=== PATIENT | male | born 1935 | race Caucasian/White ===

== ENCOUNTER → 2017-07-06 | Outpatient (CLI) | payer MEDICARE, BC, OTHER ==
[2017-07-06 14:08] LABS: BASO % 0.4 % (0.0-1.0); EOS # 0.2 10^3/uL (0.0-0.50); EOS % 1.6 % (0.0-3.0); IMMATURE GRANULOCYTE % 0.8 % (0-3.0); LYMPH # 1.2 10^3/uL (1.5-4.5); LYMPH % 12.1 % (24.0-44.0); MEAN CORPUSCULAR HEMOGLOBIN 31.8 pg (27.0-33.0); MEAN CORPUSCULAR HGB CONC 34.7 g/dl (32.0-36.5); MEAN CORPUSCULAR VOLUME 91.6 fl (80.0-96.0); MONO # 0.8 10^3/uL (0.0-0.8); MONO % 7.7 % (0.0-5.0); NEUTROPHILS # 7.7 10^3/uL (1.8-7.7); NEUTROPHILS % 77.4 % (36.0-66.0); PLATELET COUNT, AUTOMATED 230 10^3/uL (150-450); RED BLOOD COUNT 5.35 10^6/uL (4.30-6.10); RED CELL DISTRIBUTION WIDTH 12.4 % (11.5-14.5)
[2017-07-06 14:28] LABS: ALBUMIN 3.6 GM/DL (3.2-5.2); ALBUMIN/GLOBULIN RATIO 1.06 (1.00-1.93); ALKALINE PHOSPHATASE 111 U/L (45-117); ALT/SGPT 24 U/L (12-78); ANION GAP 11 MEQ/L (8-16); AST/SGOT 14 U/L (7-37); BILIRUBIN,DIRECT 0.3 MG/DL (0.0-0.2); BLOOD UREA NITROGEN 14 MG/DL (7-18); CALCIUM LEVEL 9.9 MG/DL (8.8-10.2); CARBON DIOXIDE LEVEL 25 MEQ/L (21-32); CHLORIDE LEVEL 106 MEQ/L (98-107); CREATININE FOR GFR 1.12 MG/DL (0.70-1.30); GLOMERULAR FILTRATION RATE > 60.0 (>35); GLUCOSE, FASTING 135 MG/DL (70-100); PHOSPHORUS LEVEL 2.4 MG/DL (2.5-4.9); POTASSIUM SERUM 3.8 MEQ/L (3.5-5.1); SODIUM LEVEL 142 MEQ/L (136-145)
[2017-07-09 00:07] LABS: QUANTIFERON GOLD TB Negative (Negative); TB Test (QFT) Antigen 0.07 IU/mL (.); TB Test (QFT) Antigen Minus Ni 0.05 IU/mL (.); TB Test (QFT) Mitogen >10.00 IU/mL (.); TB Test (QFT) Nil 0.02 IU/mL (.)
== END ==
LOC: M WUC 12:12
DX: L40.0 Psoriasis vulgaris (principal); Z79.899 Other long term (current) drug therapy; Z51.81 Encounter for therapeutic drug level monitoring
CPT/HCPCS: 80076

== ENCOUNTER → 2017-11-22 | Outpatient (CLI) | payer MEDICARE, BC, OTHER ==
[2017-11-22 16:34] LABS: ALBUMIN 3.5 GM/DL (3.2-5.2); ANION GAP 8 MEQ/L (8-16); BLOOD UREA NITROGEN 13 MG/DL (7-18); CALCIUM LEVEL 10.1 MG/DL (8.8-10.2); CARBON DIOXIDE LEVEL 26 MEQ/L (21-32); CHLORIDE LEVEL 109 MEQ/L (98-107); CREATININE FOR GFR 1.27 MG/DL (0.70-1.30); GLOMERULAR FILTRATION RATE 57.5 (>35); GLUCOSE, FASTING 104 MG/DL (70-100); PHOSPHORUS LEVEL 2.7 MG/DL (2.5-4.9); SODIUM LEVEL 143 MEQ/L (136-145)
== END ==
LOC: M WUC 14:29
DX: Z51.81 Encounter for therapeutic drug level monitoring (principal); Z79.899 Other long term (current) drug therapy; L40.0 Psoriasis vulgaris
CPT/HCPCS: 80069

== ENCOUNTER → 2018-01-10 | Outpatient (CLI) | payer MEDICARE, BC, OTHER ==
[2018-01-10 17:16] LABS: PROSTATIC SPECIFIC AG MONITOR 0.34 NG/ML (< 4.0)
== END ==
LOC: M WUC 13:11
DX: N40.1 Benign prostatic hyperplasia with lower urinary tract symptoms (principal)
CPT/HCPCS: 84153

== ENCOUNTER → 2018-09-01 | Outpatient (REF) | payer MEDICARE, OTHER ==
[~2018-09-01] MED LIST: AMLO5TAB6 PO; ASPI81TA21 PO; CALC3OIN TOP; DONE10TA90 PO; FINA5TAB2 PO; LEVO50TA5 PO; TERA5CAP3 PO; TOLT2CAP4 PO
[2018-09-01 14:50] LABS: URINE TOTAL PROTEIN 16.9 MG/DL (0-12)
[2018-09-01 17:32] LABS: TOTAL PROTEIN 7.4 GM/DL (6.4-8.2)
[2018-09-05 13:01] LABS: ALBUMIN 4.04 GM/DL (3.29-5.55); ALBUMIN % 54.6 % (55.8-66.1); ALPHA-1-GLOBULIN % 4.4 % (2.9-4.9); ALPHA-1-GLOBULINS 0.33 GM/DL (0.17-0.41); ALPHA-2-GLOBULINS 0.73 GM/DL (0.42-0.99); ALPHA-2-GLOBULINS % 9.8 % (7.1-11.8); BETA-1-GLOBULINS 0.43 GM/DL (0.28-0.60); BETA-1-GLOBULINS % 5.8 % (4.7-7.2); BETA-2-GLOBULINS 0.36 GM/DL (0.19-0.55); BETA-2-GLOBULINS % 4.8 % (3.2-6.5); GAMMA GLOBULIN % 20.6 % (11.1-18.8); GAMMA GLOBULINS 1.52 GM/DL (0.65-1.58)
[2018-09-05 14:10] LABS: VITAMIN D 1,25 DIHYDROXY 29.2 pg/mL (19.9-79.3)
[2018-09-07 13:25] LABS: UPEP INTERPRETATION NO M-SPIKE NOTED; URINE VOLUME RANDOM ML
== END ==
LOC: M LAB REF 13:20
PROVIDERS: ATTEND Internal Medicine Nephrology
DX: E83.52 Hypercalcemia (principal)

== ENCOUNTER → 2018-09-04 | Outpatient (REF) | payer MEDICARE, OTHER | LOC: M LAB REF 12:53 | PROVIDERS: ATTEND Internal Medicine Nephrology | DX: E83.52 Hypercalcemia (principal) ==

== ENCOUNTER → 2018-09-12 | Outpatient (CLI) | payer MEDICARE, BC, OTHER ==
[~2018-09-12] MED LIST changes: +ISOVUE-370 76% 100ML VIAL (Q9967) As Ordered ONE
--- NOTE | 2018-09-12 13:28 | REP ---
Clinical: Acute renal failure. Technique: Real time hi scale ultrasound examination using curved array transducer. Findings: The left kidney is normal in reniform shape and echogenicity without hydronephrosis and measures 10.4 x 5.6 x 4.8 cm. There appears to be a solid mass in the upper pole measuring 2.8 x 2.6 x 2.4 cm along with lower pole cyst measuring 1.2 cm. The right kidney is normal in reniform shape and echogenicity without hydronephrosis, nephrolithiasis, cystic or renal mass lesion and measures 11.1 x 4.8 x 4.7 cm. The bladder is normal in appearance. Prevoid bladder measures 5.1 x 6.7 x 7.1 cm (127 ml). Postvoid bladder measures 2.2 x 2.7 x 4.1 cm (13 ml). Postvoid residual equals 10%. Impression: 1. Left renal mass requires further investigation. Findings suggest neoplasm unless proven otherwise. Electronically Signed by Carlitos Silva MD 09/12/2018 01:20 P
== END ==
LOC: M RAD 08:38
PROVIDERS: ATTEND Internal Medicine Nephrology
DX: N17.9 Acute kidney failure, unspecified (principal); I12.9 Hypertensive chronic kidney disease with stage 1 through stage 4 chronic kidney disease, or unspecified chronic kidney disease; E83.52 Hypercalcemia; N18.3 Chronic kidney disease, stage 3 (moderate)

== ENCOUNTER 2018-09-13 15:15 | Inpatient (IN) | payer MEDICARE, BC, OTHER ==
[~2018-09-13] VITALS: Ht 165.1 cm; Wt 68.5 kg
[2018-09-13] MEDS ORDERED: AMLO5TAB6 PO (15:30)
[2018-09-13] MEDS ORDERED: FINA5TAB2 PO (15:30)
[2018-09-13] MEDS ORDERED: LEVO50TA5 PO (15:30)
[2018-09-13] MEDS ORDERED: ASPI81TA21 PO (15:30)
[2018-09-13] MEDS ORDERED: TERA5CAP3 PO (15:30)
[2018-09-13] MEDS ORDERED: TOLT2CAP4 PO (15:30)
[2018-09-13] MEDS ORDERED: DONE10TA90 PO (15:30)
[2018-09-13] MEDS ORDERED: MAALOX 30 ML SUSP *UDC PO PRN (16:45)
[2018-09-13] MEDS ORDERED: ACETAMINOPHEN TAB 650MG DOSE (2X325MG) PO PRN (16:45)
[2018-09-13] MEDS ORDERED: MOM 30ML SUSPENSION UDC PO PRN (16:45)
[2018-09-13 16:57] LABS: HEMATOCRIT 43.1 % (42.0-52.0); HEMOGLOBIN 14.9 g/dl (13.5-17.5); MEAN CORPUSCULAR HEMOGLOBIN 30.8 pg (27.0-33.0); MEAN CORPUSCULAR HGB CONC 34.6 g/dl (32.0-36.5); PLATELET COUNT, AUTOMATED 194 10^3/uL (150-450); RED BLOOD COUNT 4.84 10^6/uL (4.30-6.10); WHITE BLOOD COUNT 8.5 10^3/uL (4.0-10.0)
[2018-09-13] MEDS ORDERED: CALC3OIN TOP (17:00)
--- NOTE | 2018-09-13 17:27 | HPEPDOC ---
General Date of Admission 09/13/18 Date of Service: September 13, 2018 Attending Physician: IDANIA SHORE MD Chief Complaint The patient is a 83-year-old male admitted with a reason for visit of Abnormal L abs. Source: Patient, Family Exam Limitations: No limitations Timing/Duration: Unsure Severity: Other Associated Symptoms: Unobtainable History of Present Illness This is 82 years old white male with past medical history of hypothyroidism, BPH, overactive bladder, was sent by his regional project manager with the diagnosis of acute renal failure, hypercalcemia and a left renal mass. Patient is a poor historian. Family also is unable to give me a good history. Her father has reasoning for admission, but I spoke with Dr Lopez and he explained to patient being admitted with above diagnoses. Patient offers no complaints of chest pain, shortness of breath, tremors, seizures, etc. Home Medications Scheduled Amlodipine Besylate (Amlodipine Besylate) 5 Mg Tablet, 5 MG PO DAILY, (Reported) Aspirin (Aspir-Low) 81 Mg Tablet.dr, 81 MG PO QHS, (Reported) Calcitriol (Calcitriol) 100 Gm Oint...g., 1 APLCT TOP BID, (Reported) APPLIES TO AFFECTED AREAS FOR PSORIASIS Donepezil HCl (Donepezil HCl) 10 Mg Tablet, 10 MG PO QPM, (Reported) AFTER DINNER Finasteride (Finasteride) 5 Mg Tablet, 5 MG PO QHS, (Reported) Levothyroxine Sodium (Levothyroxine Sodium) 50 Mcg Tablet, 50 MCG PO DAILY, (Reported) Terazosin HCl (Terazosin HCl) 5 Mg Capsule, 5 MG PO QHS, (Reported) Tolterodine Tartrate (Tolterodine Tartrate ER) 2 Mg Cap.er.24h, 2 MG PO DAILY, (Reported) Allergies Coded Allergies: No Known Allergies (Unverified , 09/13/18) Past Medical History Medical History hypothyroids, BPH Surgical History back operation,s/p pilonidal cyst removal Family History Significant Family History: No pertinent family hx Social History * Smoker: former Smoker, quit greater than 1 year Alcohol: Denies Drugs: denies A-FIB/CHADSVASC A-FIB History Current/History of A-Fib/PAF?: No Review of Systems Constitutional: Denies: Chills, Fever, Malaise, Night Sweats, Weakness, Fatigue, Weight Loss, Lethargy, Other Eyes: Denies: Pain, Vision change, Conjunctivae inflammation, Eyelid inflammation, Redness, Other ENT: Denies: Head Aches, Ear Pain, Dysphagia, Sinus Congestion, Post Nasal Drip, Sore Throat, Epistaxis, Other Symptoms Skin: Denies: Rash, Lesions, Jaundice, Bruising, Itching, Dry, Breakdown, Nail Changes, Other Pulmonary: Denies: Dyspnea, Cough, Pleuritic Chest Pain, Other Symptoms Cardiovascular: Denies: Chest Pain, Palpitations, Orthopnea, Paroxysmal Noc. Dyspnea, Edema, Lt Headedness, Other Symptoms Gastrointestinal: Denies: Nausea, Vomiting, Abdominal Pain, Diarrhea, Constipation, Melena, Hematochezia, Other Symptoms Genitourinary: Denies: Dysuria, Frequency, Incontinence, Hematuria, Retention, Other Symptoms Hematologic: Denies: Bruising, Bleeding Excessively, Petecchia, Purpura, Enlarged Lymph Nodes, Other Hematologic Endocrine: Denies: Polydipsia, Polyphagia, Polyuria, Heat Intolerance, Cold Intolerance, Other Endocrine Sx Musculoskeletal: Denies: Neck Pain, Back Pain, Shoulder Pain, Arm Pain, Hand Pain, Leg Pain, Foot Pain, Joint Pain, Muscle Pain, Spasms, Other Symptoms Neurological: Denies: Weakness, Numbness, Incoordination, Change in speech, Confusion, Seizures, Other Symptoms Psych: Reports: Anxiety; Denies: Mood Normal, Depression, Memory Issues, Thoughts of Self Harm, Anger, Thoughts of Harming Other, Other Psych Physical Examination General Exam: Positive: Alert, Cooperative Eye Exam: Positive: PERRLA ENT Exam: Positive: Atraumatic, Mucous membr. moist/pink Neck Exam: Positive: Supple Chest Exam: Positive: Clear to auscultation, Normal air movement Heart Exam: Positive: Rate Normal, Normal S1, Normal S2 Abdomen Exam: Positive: Normal bowel sounds, Soft Extremity Exam: Positive: Normal pulses Skin Exam: Positive: Nl turgor and temperature Neuro Exam: Positive: Normal Gait, Cranial Nerves 3-12 NL Psych Exam: Positive: Mental status NL, Mood NL Vital Signs Vital Signs Date Time Temp Pulse Resp B/P (MAP) Pulse Ox O2 Delivery O2 Flow Rate FiO2 09/13/18 15:46 09/13/18 15:16 98.3 97 18 94 Room Air Laboratory Data Labs 24H Laboratory Tests 2 09/13/18 16:47: Nucleated Red Blood Cells % (auto) 0.0 09/13/18 16:53: POC Glucose (Misc Panel) 101, POC Sodium (Misc Panel) 140, POC Potassium (Misc Panel) 3.6, POC Chloride (Misc Panel) 107, POC Total CO2 (Misc Panel) 22.0L, POC Blood Urea Nitrogen (Misc Panel 19, POC Ionized Calcium (Misc Panel) 5.3, POC Creatinine (Misc Panel) 1.6H, POC Hematocrit (Misc Panel) 42.0 CBC/BMP Laboratory Tests 09/13/18 16:47 Red Blood Count 4.84, Mean Corpuscular Volume 89.0, Mean Corpuscular Hemoglobin 30.8, Mean Corpuscular Hemoglobin Concent 34.6, Red Cell Distribution Width 12.2 Problems (1) Renal mass, left Status: Acute Problem Specific Plan: Consult Specialist (2) Hypercalcemia Status: Acute Problem Specific Plan: Consult Specialist (3) Acute renal failure Status: Acute Problem Specific Plan: Consult Specialist Plan / VTE VTE Prophylaxis Ordered?: Yes Plan Plan Admit to med floor IVF MRI abdomen without contrast labs are pending-ordered Dr Cleveland for nephro consult continue home meds except ASA VTE prophylaxis with IDANIA Croft MD September 13, 2018 17:26
[2018-09-13 17:53] LABS: ALBUMIN 3.3 GM/DL (3.2-5.2); BILIRUBIN,TOTAL 0.7 MG/DL (0.2-1.0); CREATININE FOR GFR 1.65 MG/DL (0.70-1.30); GLOMERULAR FILTRATION RATE 42.4 (>35); POTASSIUM SERUM 3.8 MEQ/L (3.5-5.1); TOTAL PROTEIN 7.1 GM/DL (6.4-8.2)
[2018-09-13 20:20] VITALS: BP 137/84
--- NOTE | 2018-09-13 20:31 | REP ---
Clinical: Left renal mass. Technique: Noncontrast MRI of the abdomen including coronal T2 and axial STIR, T2, in phase / out of phase sequences. Findings: There is a solid mass in the upper pole of the left kidney causing contour defects and measuring approximately 2.3 cm with small amount of suspected central necrosis. The there is a 1.3 cm cyst at the lower pole of the left kidney. The right kidney demonstrates small subcentimeter lower pole cyst. Impression: 2.3 cm solid mass in the upper pole of the left kidney with suspected small amount of central necrosis. Evaluation is limited by the lack of contrast. Pre and postcontrast CT of the abdomen should be considered for further investigation. Electronically Signed by Carlitos Silva MD 09/13/2018 08:22 P
[2018-09-13] MEDS: NS 1,000 ML IV SCH (20:50)
[2018-09-13] MEDS ORDERED: FINASTERIDE 5 MG TAB PO SCH (21:00)
[2018-09-13] MEDS: DOCUSATE SODIUM 100 MG CAP PO SCH (22:29)
[2018-09-14 06:00] VITALS: BP 125/67
[2018-09-14] MEDS ORDERED: LEVOTHYROXINE 50MCG TABLET (0.05MG) PO SCH (06:00)
[2018-09-14] MEDS: NS 1,000 ML IV SCH (06:33)
[2018-09-14 06:35] LABS: HEMATOCRIT 38.6 % (42.0-52.0); HEMOGLOBIN 13.1 g/dl (13.5-17.5); MEAN CORPUSCULAR HEMOGLOBIN 29.8 pg (27.0-33.0); MEAN CORPUSCULAR HGB CONC 33.9 g/dl (32.0-36.5); MEAN CORPUSCULAR VOLUME 87.7 fl (80.0-96.0); PLATELET COUNT, AUTOMATED 173 10^3/uL (150-450); WHITE BLOOD COUNT 7.1 10^3/uL (4.0-10.0)
--- NOTE | 2018-09-14 06:36 | CR ---
DATE OF CONSULTATION: 09/13/2018 REQUESTING PHYSICIAN: Dr. Edenilson Duncan CONSULTING PHYSICIAN: Dr. Cleveland REASON FOR CONSULTATION: Management of acute renal failure and left-sided renal mass. CHIEF COMPLAINT: Patient was advised to come to the emergency room because of nausea, vomiting, worsening renal function, and evidence of a mass in the left kidney on renal ultrasound. HISTORY OF PRESENT ILLNESS: Mr. Nixon Sheikh is an 83-year-old male with past medical history of hypertension, BPH, hypothyroidism. He was seen by myself in the office about 2 weeks ago, and at that time he was referred to the nephrology service for management of worsening renal function, development of hypercalcemia. At that point, patient was found to be taking calcium tablets and multivitamins and patient was advised to stop taking the calcium tablets of multivitamins, and decision was also taken to do further imaging to rule out the possibility of a malignancy in this patient. Patient got the ultrasound of the kidneys done as outpatient yesterday, which showed a mass in the left kidney. I also got a call from patient this morning that after eating at a restaurant last night, patient had a lot of vomiting and production of a lot of mucus. Given patient's history of worsening renal function, development of hypercalcemia, and evidence of a mass in the left kidney, decision was made to send the patient to the emergency room for further evaluation and imaging studies. Patient is being admitted under the hospitalist service. Nephrology service was called for further help in the management of renal mass and acute kidney injury. I saw and evaluated the patient today, evening, in the emergency room. Patient denies any more nausea or vomiting. He denies any abdominal pain, and he is asymptomatic at this point. PAST MEDICAL HISTORY: 1. Hypertension. 2. Hypothyroidism. 3. BPH. 4. History of dementia. PAST SURGICAL HISTORY: 1. History of pilonidal sinus cyst removal. 2. History of back surgery in the past. ALLERGIES: No known drug allergies. FAMILY HISTORY: There is positive family history of carcinoma (CA) colon. SOCIAL HISTORY: Patient denies any illicit drug abuse or alcohol abuse. He does have history of smoking, but he quit about a year ago. REVIEW OF SYSTEMS: CONSTITUTIONAL: Patient denies any fevers or chills. EYES: He denies any blurry vision, double vision. EAR, NOSE, AND THROAT (ENT): He denies any dysphagia or odynophagia. CARDIOVASCULAR: Denies any chest pain, palpitations. RESPIRATORY: He denies any shortness of breath or cough. GASTROINTESTINAL (GI): He reports nausea and vomiting last night. GENITOURINARY: He reports history of BPH. MUSCULOSKELETAL: He denies any muscle aches and pains. SKIN: He denies any rashes or ulcers. HEMATOLOGIC/ONCOLOGIC: He reports recent diagnosis of a mass in the left kidney. CENTRAL NERVOUS SYSTEM (LEADERSHIP DEVELOPMENT MANAGER): He denies any strokes or seizures. ENDOCRINE: He reports history of hypothyroidism. All other review of systems is negative. PHYSICAL EXAMINATION: GENERAL: Patient is awake, alert, oriented times three, sitting up in the bed, in no apparent distress. VITAL SIGNS: Temperature is 98.3 degrees Fahrenheit, blood pressure 142/83, pulse is 97, respiratory rate of 18, saturating 94% on room air. HEAD AND NECK EXAM: Extraocular muscles intact. Pupils equally round and reactive to light. Mucous membranes are moist. Neck is supple. There is no jugular venous distention (JVD). CARDIOVASCULAR: S1, S2, regular rate. No edema of the bilateral lower extremities. RESPIRATORY: Chest is clear to auscultation bilaterally. Bilateral equal air entry. No rales or rhonchi. ABDOMEN: Soft. Positive bowel sounds. Nontender. No organomegaly. MUSCULOSKELETAL: No clubbing or cyanosis. Pulses are 2+. CENTRAL NERVOUS SYSTEM: No focal deficit. Power is 5/5 in all extremities. SKIN: No rashes or ulcers. LAB REVIEW: CBC showed a WBC of 8.5, hemoglobin 14.9, platelets are 194. BMP showed sodium 142, potassium 3.8, chloride 109, bicarbonate 23, BUN 19, creatinine is 1.6, calcium is 10, albumin is 3.3. IMAGING: An MRI was done without contrast today, which showed a solid mass in the upper pole of the left kidney causing contour defect, measuring approximately 2.3 cm with a small amount of suspected central necrosis. There is a 1.3 cm cyst in the lower pole of the left kidney. CURRENT INPATIENT MEDICATIONS: Patient's medications were all reviewed by me. He has been started on intravenous (IV) fluid hydration. He is taking: - Mylanta as needed - amlodipine 5 mg daily - Colace 100 mg by mouth twice a day - finasteride 5 mg by mouth nightly - levothyroxine 50 mcg by mouth daily - milk of magnesia as needed - Detrusitol 2 mg by mouth daily ASSESSMENT: 83-year-old male with BPH, hypertension, acute kidney injury, and left-sided renal mass. PLAN: 1. Acute kidney injury, most likely secondary to dehydration and left-sided renal mass. He has been started on gentle IV fluid hydration. Further evaluation of the renal mass as mentioned below. 2. Left-sided renal mass. Patient had the renal ultrasound done yesterday, which showed a solid mass in the left kidney. Further imaging was advised. MRI without contrast was done, which showed a solid renal mass with necrosis. Patient will need further evaluation by urology. If urology recommended, then a CT scan with IV contrast will be done with pre and post hydration. 3. Hypercalcemia. Patient had a calcium of more than 12 on labs done outpatient; however, labs done today showed a calcium of 10, which is optimal. His vitamin D and multivitamin including calcium were already stopped. No need of calcitonin administration at this point. 4. Hypothyroidism. Continue home dose of levothyroxine 50 mcg by mouth daily. 5. Hypertension. Blood pressure is acceptable. Continue current dose of amlodipine 5 mg by mouth daily. 6. BPH. Continue home dose of Proscar 5 mg by mouth nightly and tolterodine 2 mg by mouth daily. Thank you for involving me in the care of this patient. I shall be happy to follow the patient along with you tomorrow morning. Plan of care was discussed with the admitting physician, Dr. Duncan.
[2018-09-14 07:01] LABS: ALBUMIN 2.8 GM/DL (3.2-5.2); BILIRUBIN,TOTAL 0.7 MG/DL (0.2-1.0); CALCIUM LEVEL 9.2 MG/DL (8.8-10.2); CREATININE FOR GFR 1.33 MG/DL (0.70-1.30); GLOMERULAR FILTRATION RATE 54.4 (>35); MAGNESIUM LEVEL 1.6 MG/DL (1.8-2.4); POTASSIUM SERUM 3.4 MEQ/L (3.5-5.1); TOTAL PROTEIN 5.8 GM/DL (6.4-8.2)
[2018-09-14] MEDS ORDERED: POTASSIUM CHLORIDE 10 MEQ SR TABLET PO SCH (09:00)
[2018-09-14] MEDS ORDERED: TOLTERODINE TARTRATE 2 MG LA CAP (DETROL LA) PO SCH (09:00)
[2018-09-14] MEDS ORDERED: amLODIPine 5 MG TAB PO SCH (09:00)
[2018-09-14 09:27] VITALS: BP 144/77
[2018-09-14] MEDS: DOCUSATE SODIUM 100 MG CAP PO SCH (09:27)
--- NOTE | 2018-09-14 10:56 | REP ---
CT ABDOMEN WITHOUT AND WITH IV CONTRAST: Three-phase study. HISTORY: Left renal mass. Comparison MRI study is from September 13, 2018. CT CONTRAST DOSE: 100 mL of intravenous Isovue 370. CT FINDINGS: Preliminary digital lag screwer radiograph is unremarkable. The lung bases show minimal linear fibrosis. They are otherwise clear. The liver and the spleen are normal in size and homogeneous in texture. No adrenal lesion is seen on either side. There are stippled calcifications scattered in the pancreas consistent with chronic pancreatitis. No mass or cyst is seen in the pancreas. No abnormality is noted in the gallbladder. There is right and left colonic diverticulosis. Pre- and postcontrast CT images confirm the presence of a 2.5 x 2.4 x 2.3 cm heterogeneously hypervascular enhancing mass in the upper pole of the left kidney. This is compatible with renal malignancy. There is no evidence of regional lymphadenopathy. The renal veins are patent on postcontrast imaging and normal in caliber bilaterally. The vena cava is unremarkable. There is also a cyst in the lower pole of the left kidney which measures 1.4 cm in greatest diameter. No right renal mass is seen. There are degenerative changes in the lumbar spine. No acute bony abnormality is appreciated. IMPRESSION: 2.5 cm enhancing mass lesion in the upper pole left kidney consistent with renal cell carcinoma. No evidence of regional adenopathy or renal vein involvement. Stippled calcifications are seen throughout the pancreas consistent with chronic pancreatitis. Pancolonic diverticulosis is also noted. Electronically Signed by Vicente Chaudhry MD 09/14/2018 02:36 P
--- NOTE | 2018-09-14 12:22 | DS.PDOC ---
Discharge Summary General Date of Admission September 13, 2018 at 16:43 Date of Discharge , 09/14/2018 Attending Physician: IDANIA SHORE MD Discharge Summary PROCEDURES PERFORMED DURING STAY: [None]. ADMITTING DIAGNOSES: 1. [Renal cell carcinoma. Acute renal failure]. DISCHARGE DIAGNOSES: 1. [Renal cell carcinoma. Acute renal failure]. COMPLICATIONS/CHIEF COMPLAINT: Acute Renal Failure. HISTORY OF PRESENT ILLNESS: [This is 82 years old white male with past medical history of hypothyroidism, BPH, overactive bladder, was sent by his clinical pharmacist with the diagnosis of acute renal failure, hypercalcemia and a left renal mass. Patient is a poor historian. Family also is unable to give me a good history. Her father has reasoning for admission, but I spoke with Dr Lopez and he e xplained to patient being admitted with above diagnoses. Patient offers no complaints of chest pain, shortness of breath, tremors, seizures, etc.]. HOSPITAL COURSE: [Patient was admitted with the diagnosis of acute renal failure was started on gentle hydration with IV fluids, patient's renal function is under well control. This morning. Patient also had MRI done last night which was consistent with renal cell carcinoma in CT with IV contrast this morning again confirmed the diagnosis. Discussed with patient will follow with the his urologist, Dr. Lenny Bangura at [facility] Patient will be discharged home today on on his current home medications. DISCHARGE MEDICATIONS: Please see below. ALLERGIES: Please see below. PHYSICAL EXAMINATION ON DISCHARGE: VITAL SIGNS: Please see below. GENERAL: [Within normal limits] HEENT: [PERRLA] NECK: [Supple] CARDIOVASCULAR EXAMINATION: [S1, S2, regular] RESPIRATORY EXAMINATION: [Clear to A&P] ABDOMINAL EXAMINATION: [Benign] EXTREMITIES: [Negative clubbing, cyanosis, edema] SKIN: [Normal] NEUROLOGICAL EXAMINATION: [. No focal motor or sensory deficit] PSYCHIATRIC EXAMINATION: Within normal limits LABORATORY DATA: Please see below. IMAGING: [As above] PROGNOSIS: [Good] ACTIVITY: [As tolerated]. DIET: [Regular] DISCHARGE PLAN: [Follow-up with your urologist at [facility] as soon as possible] DISPOSITION: . Home DISCHARGE INSTRUCTIONS: 1. [As above]. ITEMS TO FOLLOWUP ON ON OUTPATIENT: 1. [As above]. DISCHARGE CONDITION: [Stable]. TIME SPENT ON DISCHARGE: [38] minutes. Vital Signs/I&Os Vital Signs Date Time Temp Pulse Resp B/P (MAP) Pulse Ox O2 Delivery O2 Flow Rate FiO2 09/14/18 09:27 97 144/77 09/14/18 06:00 96.9 18 94 09/13/18 19:55 Room Air I&O- Last 24 Hours up to 6 AM 09/14/18 06:00 Intake Total 340 ml Output Total 150 ml Balance 190 ml Laboratory Data Labs 24H Laboratory Tests 2 09/13/18 16:47: Nucleated Red Blood Cells % (auto) 0.0, Anion Gap 10, Glomerular Filtration Rate 42.4, Blood Urea Nitrogen 19H, Creatinine 1.65H, Sodium Level 142, Potassium Level 3.8, Chloride Level 109H, Carbon Dioxide Level 23, Calcium Level 10.0, Aspartate Amino Transf (AST/SGOT) 16, Alanine Aminotransferase (ALT/SGPT) 23, Alkaline Phosphatase 78, Total Bilirubin 0.7, Total Protein 7.1, Albumin 3.3, Albumin/Globulin Ratio 0.87L 09/13/18 16:53: POC Glucose (Misc Panel) 101, POC Sodium (Misc Panel) 140, POC Potassium (Misc Panel) 3.6, POC Chloride (Misc Panel) 107, POC Total CO2 (Misc Panel) 22.0L, POC Blood Urea Nitrogen (Misc Panel 19, POC Ionized Calcium (Misc Panel) 5.3, POC Creatinine (Misc Panel) 1.6H, POC Hematocrit (Misc Panel) 42.0 09/14/18 06:18: Nucleated Red Blood Cells % (auto) 0.0, Anion Gap 5L, Glomerular Filtration Rate 54.4, Blood Urea Nitrogen 14, Creatinine 1.33H, Sodium Level 142, Potassium Level 3.4L, Chloride Level 113H, Carbon Dioxide Level 24, Calcium Level 9.2, Aspartate Amino Transf (AST/SGOT) 15, Alanine Aminotransferase (ALT/SGPT) 16, Alkaline Phosphatase 61, Total Bilirubin 0.7, Total Protein 5.8L, Albumin 2.8L, Albumin/Globulin Ratio 0.93L, Magnesium Level 1.6L CBC/BMP Laboratory Tests 09/13/18 16:47 Red Blood Count 4.84, Mean Corpuscular Volume 89.0, Mean Corpuscular Hemoglobin 30.8, Mean Corpuscular Hemoglobin Concent 34.6, Red Cell Distribution Width 12.2, Calcium Level 10.0, Aspartate Amino Transf (AST/SGOT) 16, Alanine Aminotransferase (ALT/SGPT) 23, Alkaline Phosphatase 78, Total Bilirubin 0.7, Total Protein 7.1, Albumin 3.3 09/14/18 06:18 Red Blood Count 4.40, Mean Corpuscular Volume 87.7, Mean Corpuscular Hemoglobin 29.8, Mean Corpuscular Hemoglobin Concent 33.9, Red Cell Distribution Width 12.4, Calcium Level 9.2, Aspartate Amino Transf (AST/SGOT) 15, Alanine Aminotransferase (ALT/SGPT) 16, Alkaline Phosphatase 61, Total Bilirubin 0.7, Total Protein 5.8 L, Albumin 2.8 L Discharge Medications Scheduled Amlodipine Besylate (Amlodipine Besylate) 5 Mg Tablet, 5 MG PO DAILY, (Reported) Aspirin (Aspir-Low) 81 Mg Tablet.dr, 81 MG PO QHS, (Reported) Calcitriol (Calcitriol) 100 Gm Oint...g., 1 APLCT TOP BID, (Reported) APPLIES TO AFFECTED AREAS FOR PSORIASIS Donepezil HCl (Donepezil HCl) 10 Mg Tablet, 10 MG PO QPM, (Reported) AFTER DINNER Finasteride (Finasteride) 5 Mg Tablet, 5 MG PO QHS, (Reported) Levothyroxine Sodium (Levothyroxine Sodium) 50 Mcg Tablet, 50 MCG PO DAILY, (Reported) Terazosin HCl (Terazosin HCl) 5 Mg Capsule, 5 MG PO QHS, (Reported) Tolterodine Tartrate (Tolterodine Tartrate ER) 2 Mg Cap.er.24h, 2 MG PO DAILY, (Reported) Allergies Coded Allergies: No Known Allergies (Unverified , 09/13/18) IDANIA SHORE MD September 14, 2018 12:22
--- NOTE | 2018-09-14 17:26 | IPN ---
DATE: 09/14/2018 SUBJECTIVE: The patient was seen and examined at the bedside today morning. He is afebrile, hemodynamically stable. He is getting IV fluid hydration. Renal function is improving, creatinine is down to 1.3 which is close to his baseline. The patient denies any active complaints at this point. OBJECTIVE: Vital signs: Temperature is 96.9 degrees Fahrenheit. Blood pressure 125/67, pulse is 63, respiratory rate of 18, saturating 94% on room air. Intake and output: Urine output is not recorded well. Weight on the bed scale was 68.5 kg yesterday. PHYSICAL EXAMINATION: General: The patient is awake, alert, oriented times three, laying in bed. No apparent distress. Head and Neck Exam: Extraocular muscles intact. Pupils equally round and reactive to light. Mucous membranes are moist. Neck is supple. There is no jugular venous distention (JVD). Cardiovascular: S1, S2, regular rate. No edema of the bilateral lower extremities. Respiratory: Chest is clear to auscultation bilaterally. Bilateral equal air entry. No rales or rhonchi. Abdomen: Soft. Positive bowel sounds. Nontender. No organomegaly. Musculoskeletal: No clubbing or cyanosis. Pulses are 2+. Central Nervous System (LINE ANALYST): No focal deficit. Power is 5/5 in all extremities. LAB REVIEW: CBC showed a WBC of 7.1, hemoglobin 13.1, platelets of 173. BMP showed sodium 142, potassium 3.4, chloride 113, bicarbonate 24, BUN 14, creatinine is 1.3, calcium 9.2, magnesium 1.6, albumin is 2.8. IMAGING: The patient got a CAT scan of the abdomen with and without IV contrast done today morning for the left-sided renal mass. It showed a 2.5 cm enhancing mass lesion in the upper pole of the left kidney consistent with renal cell carcinoma. No evidence of regional adenopathy or renal involvement. CURRENT INPATIENT MEDICATIONS: The patient's medications were all reviewed by me. He is currently on normal saline at 60 mL an hour. He was also given potassium chloride 20 mEq by mouth. No other change in the medications today as compared with yesterday. ASSESSMENT/PLAN: 1. Acute kidney injury superimposed on chronic kidney disease stage III. It was secondary to dehydration, volume depletion and recent diagnosis of left-sided renal mass. The patient got IV fluid hydration overnight. Renal function is improving. Creatinine is down to 1.3. IV fluids can be stopped in the afternoon. 2. Left-sided renal mass. The patient initially got the MRI done which could not appreciate the tumor because of lack of contrast. The patient got the IV fluid hydration overnight and was given IV contrast with CT scan, which showed 2.5 cm left-sided renal cell cancer. The patient already follows up with the [facility] at [place] for history of his BPH, follows up with Dr. Bangura. We shall transmit all the records to Dr. Bangura's office, and the patient will follow up with him at [place] for further discussion about resection of the tumor. 3. Hypertension. Blood pressure is acceptable. Continue current dose of amlodipine 5 mg daily. 4. BPH. Continue home dose of tolterodine and Proscar. 5. Hypokalemia. The patient was already given a dose of potassium chloride 20 mEq by mouth today morning. 6. Disposition: Patient's renal function has improved back to his baseline. Patient's current diagnosis and future options were already discussed with him at the bedside in presence of his family members. It is okay to discharge the patient from a nephrology standpoint. He already has follow-up scheduled in the nephrology office next week, and he will need to follow up with his urologist at [place] for renal cell cancer. Plan of care was discussed with the hospitalist, Dr. Edenilson Duncan. KIMBERLY
[2018-09-15] MEDS ORDERED: PREVNAR 13 VACCINE SYRINGE (CPT CODE:90670) IM ONE (09:00)
== END 2018-09-14 13:26 | disposition home or self-care (01) | DRG 683 ==
LOC: M ED 15:15 → M ED INP 16:43 → M MSPAV 20:20
PROVIDERS: ADMIT Internal Medicine; ATTEND Internal Medicine
DX: N17.9 Acute kidney failure, unspecified (principal); C64.2 Malignant neoplasm of left kidney, except renal pelvis; E83.52 Hypercalcemia; E03.9 Hypothyroidism, unspecified; N40.0 Benign prostatic hyperplasia without lower urinary tract symptoms; Z79.899 Other long term (current) drug therapy; Z79.82 Long term (current) use of aspirin; N18.3 Chronic kidney disease, stage 3 (moderate); I12.9 Hypertensive chronic kidney disease with stage 1 through stage 4 chronic kidney disease, or unspecified chronic kidney disease; E86.0 Dehydration; E87.6 Hypokalemia

== ENCOUNTER → 2018-12-05 | Outpatient (CLI) | payer MEDICARE, BC, OTHER ==
[~2018-12-05] MED LIST changes: +CITA10TA5 PO; -ISOVUE-370 76% 100ML VIAL (Q9967) As Ordered ONE; +KEFL500C17 PO; +PERI0.126 PO; +POTA10TA67 PO
[2018-12-05 17:16] LABS: BASO % 0.3 % (0.0-1.0); EOS # 0.2 10^3/uL (0.0-0.50); EOS % 2.1 % (0.0-3.0); HEMATOCRIT 42.5 % (42.0-52.0); HEMOGLOBIN 14.4 g/dl (13.5-17.5); LYMPH # 1.2 10^3/uL (1.5-4.5); LYMPH % 12.7 % (24.0-44.0); MEAN CORPUSCULAR HEMOGLOBIN 31.5 pg (27.0-33.0); MEAN CORPUSCULAR HGB CONC 33.9 g/dl (32.0-36.5); MONO # 0.8 10^3/uL (0.0-0.8); MONO % 8.5 % (0.0-5.0); NEUTROPHILS # 7.2 10^3/uL (1.8-7.7); NEUTROPHILS % 75.8 % (36.0-66.0); PLATELET COUNT, AUTOMATED 221 10^3/uL (150-450); RED BLOOD COUNT 4.57 10^6/uL (4.30-6.10); WHITE BLOOD COUNT 9.5 10^3/uL (4.0-10.0)
[2018-12-05 17:33] LABS: CREATININE FOR GFR 1.34 MG/DL (0.70-1.30); GLOMERULAR FILTRATION RATE 53.9 (>35)
[2018-12-05 17:35] LABS: INR 1.02; PROTHROMBIN TIME 13.1 SECONDS (11.8-14.0)
== END ==
LOC: M SMT 13:51
PROVIDERS: ATTEND Urology
DX: D41.02 Neoplasm of uncertain behavior of left kidney (principal)

== ENCOUNTER 2018-12-07 21:35 | Emergency (ER) | payer MEDICARE, BC, OTHER ==
[~2018-12-07] VITALS: Ht 162.6 cm; Wt 70.0 kg
[~2018-12-07 21:35] MED LIST changes: -CITA10TA5 PO; -KEFL500C17 PO; -PERI0.126 PO; -POTA10TA67 PO
[2018-12-07] MEDS ORDERED: CITA10TA5 PO (21:54)
[2018-12-07] MEDS ORDERED: POTA10TA67 PO (21:54)
[2018-12-07] MEDS ORDERED: LIDOCAINE 4% CREAM 5GM (LMX4) TOP ONE (22:30)
[2018-12-07] MEDS ORDERED: DERMABOND TOPICAL SKIN ADHESIVE TOP ONE (22:30)
--- NOTE | 2018-12-07 22:55 | REPVR ---
EXAM: CT Head Without Contrast EXAM DATE/TIME: 12/07/2018 10:16 PM CLINICAL HISTORY: 83 years old, male; Injury or trauma; Fall; Initial encounter; Blunt trauma (contusions or hematomas); Consciousness not specified; Additional info: Fall with facial injuries TECHNIQUE: Imaging protocol: Computed tomography images of the head without contrast. Radiation optimization: All CT scans at this facility use at least one of these dose optimization techniques: automated exposure control; mA and/or kV adjustment per patient size (includes targeted exams where dose is matched to clinical indication); or iterative reconstruction. COMPARISON: CT Head without contrast 02/17/2014 8:10 PM FINDINGS: Brain: Patchy areas of hypoattenuation in the periventricular and subcortical white matter, consistent with chronic small vessel ischemic disease. No CT evidence of acute intracranial hemorrhage or acute territorial infarction. No significant mass effect or midline shift. Basal cisterns patent. Ventricles: Prominence of the cortical sulci, cisterns and ventricular system, consistent with cerebral and cerebellar volume loss. Bones/joints: No acute osseous abnormality. Sinuses: Mild ethmoid mucosal thickening. Mastoid air cells: Grossly unremarkable. Soft tissues: Grossly unremarkable. Vasculature: Calcific atherosclerotic disease in the cavernous internal carotid arteries, as well as the vertebro-basilar system. IMPRESSION: 1. No CT evidence of acute intracranial pathology. 2. Additional findings, as above. Electronically signed by: Mo Gastelum On 12/07/2018 22:55:35 PM
--- NOTE | 2018-12-07 22:57 | REPVR ---
EXAM: CT Maxillofacial Without Contrast EXAM DATE/TIME: 12/07/2018 10:16 PM CLINICAL HISTORY: 83 years old, male; Injury or trauma; Fall; Initial encounter; Blunt trauma (contusions or hematomas); Nose; Additional info: Fall with facial injuries TECHNIQUE: Imaging protocol: Computed tomography images of the face without contrast. Radiation optimization: All CT scans at this facility use at least one of these dose optimization techniques: automated exposure control; mA and/or kV adjustment per patient size (includes targeted exams where dose is matched to clinical indication); or iterative reconstruction. COMPARISON: No relevant prior studies available. FINDINGS: Orbits: No acute intraorbital abnormality. Globes intact. Sinuses: Mild ethmoid and maxillary sinus mucosal thickening. Bones/joints: Subtle deformity of the anterior nasal bones. Soft tissues: Perinasal soft tissue swelling. IMPRESSION: 1. Subtle deformity of the anterior nasal bones with overlying soft tissue swelling. 2. Additional findings, as above. Electronically signed by: Mo Gastelum On 12/07/2018 22:57:28 PM
--- NOTE | 2018-12-07 23:00 | REPVR ---
EXAM: CT Cervical Spine Without Contrast EXAM DATE/TIME: 12/07/2018 10:16 PM CLINICAL HISTORY: 83 years old, male; Injury or trauma; Fall; Initial encounter; Blunt trauma; Additional info: Fall with facial injuries TECHNIQUE: Imaging protocol: Computed tomography images of the cervical spine without contrast. Radiation optimization: All CT scans at this facility use at least one of these dose optimization techniques: automated exposure control; mA and/or kV adjustment per patient size (includes targeted exams where dose is matched to clinical indication); or iterative reconstruction. COMPARISON: No relevant prior studies available. FINDINGS: Vertebrae: Osteopenia. Straightening of the normal cervical lordosis. Mild anterolisthesis of C3 on C4, C4 on C5 and C7 on T1. Alignment otherwise anatomic. Mild levoscoliosis. No CT evidence of acute fracture, dislocation or subluxation. Vertebral body heights maintained. Discs/Spinal canal/Neural foramina: Multilevel degenerative changes, characterized by disc space narrowing, osteophytosis and uncovertebral and facet joint hypertrophy. Multilevel spinal canal and neural foraminal narrowing. Soft tissues: Grossly unremarkable. Lungs: Grossly unremarkable. IMPRESSION: 1. No CT evidence of acute cervical spine traumatic injury. 2. Additional findings, as above. Electronically signed by: Mo Gastelum On 12/07/2018 23:00:05 PM
[2018-12-07] MEDS ORDERED: KEFL500C17 PO (23:27)
[2018-12-07] MEDS ORDERED: PERI0.126 PO (23:27)
[2018-12-07] MEDS ORDERED: CEPHALEXIN 500 MG CAP PO ONE (23:30)
[2018-12-07 23:59] VITALS: BP 160/87
== END 2018-12-08 | disposition home or self-care (01) ==
LOC: M ED 21:35
DX: S01.81XA Laceration without foreign body of other part of head, initial encounter (principal); S00.81XA Abrasion of other part of head, initial encounter; W10.8XXA Fall (on) (from) other stairs and steps, initial encounter; Y92.018 Other place in single-family (private) house as the place of occurrence of the external cause; I10 Essential (primary) hypertension; E03.9 Hypothyroidism, unspecified; K21.9 Gastro-esophageal reflux disease without esophagitis; F33.9 Major depressive disorder, recurrent, unspecified; Z79.899 Other long term (current) drug therapy; Z79.890 Hormone replacement therapy; Z79.82 Long term (current) use of aspirin

== ENCOUNTER → 2019-01-09 | Outpatient (CLI) | payer MEDICARE, BC, OTHER ==
[~2019-01-09] MED LIST changes: +CITA10TA5 PO; +KEFL500C17 PO; +PERI0.126 PO; +POTA10TA67 PO
--- NOTE | 2019-01-09 11:53 | REP ---
CHEST, TWO VIEWS: Two views of the chest are performed. There is no acute infiltrate. The lungs are clear. Nipple shadow is seen on the left. The heart is normal in size. There is calcification and tortuosity of the thoracic aorta. The mediastinal silhouette is unchanged. There are degenerative changes of the spine. IMPRESSION: No acute pulmonary disease. Electronically Signed by Edwin Zazueta MD 01/09/2019 03:59 P
== END ==
LOC: M WUC 11:06
PROVIDERS: ATTEND Internal Medicine Cardiovascular Disease
DX: J44.9 Chronic obstructive pulmonary disease, unspecified (principal)

== ENCOUNTER 2019-01-24 13:47 | Day surgery (SDC) | payer MEDICARE, BC, OTHER ==
[~2019-01-24] VITALS: Ht 165.1 cm; Wt 7.0 kg
[2019-01-24] VITALS (7 sets, daily range): BP systolic 109–159; BP diastolic 63–77
[~2019-01-24 13:47] MED LIST changes: +AMIODARONE HCL 360 MG/200 ML PREMIXED BAG (NEXTERONE) As Ordered ONE; +BACITRACIN PWD 50,000 UNITS VIAL As Ordered ONE; +ISOVUE-300 61% 50ML VIAL (Q9967) As Ordered ONE; +LIDOCAINE 1% SDV INJ 30 ML VIAL As Ordered ONE
[2019-01-24] MEDS ORDERED: ceFAZolin 2 GM/D5W 50 ML IV BAG (J0690 PER 500MG) As Ordered ONE (14:24)
[2019-01-24] MEDS ORDERED: OMEP10CASR PO (14:33)
[2019-01-24] MEDS ORDERED: ceFAZolin SOD 2 GM in IV 1 EA IV ONE (15:00)
[2019-01-24] MEDS ORDERED: LR 1,000 ML IV SCH ×2 (15:00→17:45)
[2019-01-24] MEDS ORDERED: ePHEDrine SULFATE 25 MG/5 ML(5MG/ML) SYRINGE As Ordered ONE (16:27)
[2019-01-24] MEDS ORDERED: PROPOFOL 200 MG/20 ML VIAL As Ordered ONE (16:27)
[2019-01-24] MEDS ORDERED: ONDANSETRON 4MG/2ML VIAL (J2405) As Ordered ONE (16:27)
[2019-01-24] MEDS ORDERED: LIDOCAINE 2% INJ 100 MG/5 ML SDV (FOR ANES.) As Ordered ONE (16:27)
[2019-01-24] MEDS ORDERED: MIDAZOLAM INJ 2 MG/2 ML VIAL (J2250) As Ordered ONE (16:27)
[2019-01-24] MEDS ORDERED: fentaNYL 100 MCG/2 ML INJECTION (J3010) As Ordered ONE (16:27)
[2019-01-24] MEDS ORDERED: ACETAMINOPHEN TAB 650MG DOSE (2X325MG) PO PRN (17:15)
[2019-01-24] MEDS ORDERED: ONDANSETRON 4MG/2ML VIAL (J2405) IV PRN (17:45)
[2019-01-24] MEDS ORDERED: fentaNYL 100 MCG/2 ML INJECTION (J3010) IV PRN (17:45)
--- NOTE | 2019-01-24 18:24 | REP ---
CHEST, SINGLE VIEW: Single view of the chest is performed. There is no acute infiltrate or pulmonary edema. Heart is not enlarged. There is calcification and tortuosity of the thoracic aorta. Mediastinal silhouette is unremarkable and unchanged since prior study of 01/09/2019. There is a left dual lead pacemaker with atrial and ventricular leads appearing to be in good position. There is no pneumothorax. Electronically Signed by Edwin Zazueta MD 01/24/2019 06:47 P
--- NOTE | 2019-01-24 18:38 | RO ---
DATE: 01/24/2019 PROCEDURE: Implantation of permanent dual-chamber pacemaker. IMPLANTING REAL ESTATE CLOSING COORDINATOR Dr. Jermaine Nuñez. ANESTHESIOLOGIST: Dr. Carrasquillo. PREOPERATIVE DIAGNOSIS: Atrioventricular (AV) block with recurrent falls. POSTOPERATIVE DIAGNOSIS: Atrioventricular (AV) block with recurrent falls. TYPE OF ANESTHESIA: Monitored local anesthesia. CLINICAL SUMMARY: This 83-year-old father of four (two ), retired resident of [place] was evaluated in my office 01/09/2019 for abnormal preoperative EKG for (for tentative laparotomy for renal mass). His chief limitation has been low back pain. Had a history of gastroesophageal reflux, but no effort-related chest pain. Prior longstanding smoking history with chronic cough, but limited by his back pain, he does not become short of breath. Has been unaware of his heart action and not aware of an abnormal EKG until recently. He has had a history of intermittent unsteadiness and two prior falls. Remote episode of a transient ischemic attack (TIA). EKG showed sinus rhythm at 69 bpm with very marked first-degree AV block. Somewhat low voltages with slow precordial R-wave progression related to his pulmonary disease. On examination, a pleasant elderly male of medium body build, slightly barrel-chested. Heart rate 68 beats per minute, blood pressure 136/66 sitting, respiratory rate 16, body mass index (BMI) 25.8. No pallor or icterus. Edentulous, with upper and lower dentures. Normal oral moisture. Trachea midline. Neck veins were not elevated. Increased anteroposterior chest diameter with fairly good air entry over both lung tafoya with bibasilar inspiratory crepitations that improved with a deep breath. Apical impulse was not palpable heart sounds were quite distant and a soft systolic ejection murmur. Normal carotid upstrokes and volume against aortic stenosis. Peripheral pulses were normal. No dependent edema. Soft and nontender abdomen, with no palpable mass or hepatosplenomegaly. Blood work 12/21/2018 showed hemoglobin of 14.1, a white blood cell count 7.5, platelet count 224,000. Electrolytes were in balance with a BUN 19, creatinine 1.2, glucose 94. Normal ultra-sensitive TSH. A treadmill stress study was performed to assess his coronary prognosis and antegrade AV conduction. He was able to obtain a peak heart rate of 130 beats per minute without evidence of a high-grade AV block, normal blood pressure, with back pain and shortness of breath with leg fatigue, but no chest pain. No EKG changes. A Holter monitor was performed 01/17/2019 and showed underlying sinus rhythm. We had discontinued donepezil and citalopram, suspected to be responsible for his AV conduction problems; however, this study did show he had intermittent high-grade AV block with heart rates in the 20s. There were 428 pauses more than 2 seconds, with the longest 2.3 seconds in duration. Had no more than 4 premature atrial contractions (PACs) and 6 premature ventricular contractions (PVCs). Patient reported urge to urinate on four occasions that did not correlate with any rhythm disturbance, two episodes of lightheadedness while walking on the treadmill did not correlate with bradyarrhythmia. In light of this marked bradycardia and his scheduled operative procedure for removal of a renal mass, we arranged for prompt implantation of permanent dual-chamber pacemaker under monitored local anesthesia today. DESCRIPTION OF PROCEDURE: Following informed consent with the patient in a fasting state having received Ancef 2 grams intravenous (IV) premedication, the patient was taken to the operating theater. Numerous skin electrodes were applied to facilitate continuous electrocardiographic monitoring. The left subclavian region was prepped and draped in the usual fashion and the skin was infiltrated with 1% Xylocaine. The left axillary vein was catheterized using the micropuncture technique. A 5 cm linear incision was then made several centimeters below and parallel to the left clavicle. Dissection was carried down to the level of the pectoralis fascia and a pocket was fashioned below the level of the incision line. Two bipolar screw-in active fixation steroid-eluting pacing leads were then positioned to the right ventricular apex and high right atrial appendage under fluoroscopic and electrocardiographic control. The ventricular lead ([employer] model number [id number], serial number [id number]) measurements were focal and stimulation threshold 1.0 V/0.4 ms/impedance at 585 ohms. The R wave amplitude measured 6.4 mV. The atrial lead ([employer] model number [id number]/52, serial number [id number]) measurements were focal and stimulation threshold 1.3V/ 0.4 ms/impedance 500 ohms. The P wave amplitude measured 3.0 mV. By the time we reached the recovery room, the pacing threshold in both chambers was 0.5V at 0.04 milliseconds. These leads were secured in position with sleeves sutured at the insertion site. There were then connected to a dual-chamber pulse generator ([employer] - Assurity MRI compatible, model number [id number], serial number [id number]) and appropriate DDD pacing was documented. The device was then placed in the pocket and secured in position with a suture through the upper right-hand corner of the epoxy header. The subcutaneous tissues were approximated using a running Chromic suture and the skin was closed using jae. Dry dressing was applied and the patient was returned to the recovery room in good condition. Portable upright chest x-ray showed good lead position with no pneumothorax. Postoperative EKG showed appropriate dual-chamber pacer function. We have activated the intrinsic ventricular activity conduction search feature and his QRS complexes at this point are narrow with a [place] interval currently measuring at 298 milliseconds. Our plan is to monitor the patient on telemetry overnight and he will receive three additional doses of Ancef 1 gram every 8 hours. Followup EKG and chest x-ray will be obtained in the morning and we anticipate he will be discharged home. No apparent complications. Estimated blood loss less than 10 mL. MTDD
[2019-01-24] MEDS ORDERED: SLF 3 ML SYR IV PRN (19:00)
[2019-01-24] MEDS ORDERED: TERAZOSIN 5 MG CAP PO SCH (21:00)
[2019-01-24] MEDS: POLYVINYL ALCOHOL OPHTH SOLN 15 ML(LIQUITEARS) OU SCH (21:38)
[2019-01-24] MEDS: SLF 3 ML SYR IV SCH (22:28)
[2019-01-24] MEDS: ceFAZolin SOD 1 GM in D5W MINI-BAG PLUS 50 ML IV SCH (23:22)
[2019-01-25 01:00] VITALS: BP 108/62
[2019-01-25 04:00] VITALS: BP 120/69
[2019-01-25] MEDS: SLF 3 ML SYR IV SCH ×2 (05:54→14:01)
[2019-01-25] MEDS ORDERED: LEVOTHYROXINE 50MCG TABLET (0.05MG) PO SCH (06:00)
[2019-01-25 08:00] VITALS: BP 131/81
--- NOTE | 2019-01-25 08:03 | REP ---
Chest x-ray: Two views. History: Post pacemaker implant. Comparison chest x-ray: January 24, 2019. Findings: EKG electrodes are seen. Bipolar pacemaker is seen in place via the left side. Skin jae are noted adjacent to the power plant. In the left subclavicular soft tissues. There is no evidence of pneumothorax or hydrothorax. Heart is not enlarged. The thoracic aorta is calcific and tortuous. Pulmonary vasculature is not increased. There are degenerative changes in the thoracic spine. Impression: Pacemaker in place. No complication identified. Electronically Signed by Vicente Chaudhry MD 01/25/2019 07:54 A
[2019-01-25 08:37] VITALS: BP 131/81
[2019-01-25] MEDS: POLYVINYL ALCOHOL OPHTH SOLN 15 ML(LIQUITEARS) OU SCH ×3 (08:37→16:17)
[2019-01-25] MEDS: ceFAZolin SOD 1 GM in D5W MINI-BAG PLUS 50 ML IV SCH ×2 (08:37→16:16)
[2019-01-25] MEDS ORDERED: TOLTERODINE TARTRATE 2 MG LA CAP (DETROL LA) PO SCH (09:00)
[2019-01-25] MEDS ORDERED: FINASTERIDE 5 MG TAB PO SCH (09:00)
[2019-01-25] MEDS ORDERED: amLODIPine 5 MG TAB PO SCH (09:00)
[2019-01-25 12:00] VITALS: BP 135/86
[2019-01-25 15:33] VITALS: BP 137/87
[2019-01-25] MEDS ORDERED: CITA10TA5 PO (16:21)
[2019-01-25] MEDS ORDERED: BETA145CR TOP (16:21)
[2019-01-25] MEDS ORDERED: DONE10TA90 PO (16:21)
--- NOTE | 2019-01-26 11:17 | IPN ---
CARDIOLOGY PROGRESS NOTE: DATE: 01/25/2019 SUBJECTIVE The patient has had very little incisional discomfort from his pacemaker implant yesterday. Has been up to the bathroom and back without lightheadedness, shortness of breath or anginal discomfort. OBJECTIVE Pleasant slightly barrel-chested elderly male of medium body build laying comfortably flat. Heart rate 76 bpm, blood pressure 135/86 supine, respiratory rate 16, O2 saturation 95% on room air. Afebrile. Normal oral moisture. Trachea midline. Neck veins were not elevated. Slightly increased anteroposterior chest diameter with fairly comfortable and easy respirations. His pacemaker incision appears to be healing well. The dressing was changed today. Chest x-ray: PA and left lateral study was performed earlier today and shows normal appearing heart size with slightly unfolded thoracic aorta, but normal pulmonary vasculature. Clear lung tafoya with stable bipolar pacing lead position with no pneumothorax. Pulse generator left subclavian region. EKG: Study performed earlier today shows sinus rhythm at 73 bpm with spontaneous, AV conduction with marked first-degree AV block measuring 330 ms (his pacemaker has a VIP mode that allows for intrinsic AV conduction as much as possible in light of his nice narrow QRS complexes. However, should he have a dropped QRS complex, the device will automatically deliver a ventricular paced complex at 150 - 200 ms delay. QRS complexes are narrow showing slow precordial R-wave progression and slightly low limb voltage in keeping with his pulmonary disease. No repolarization abnormality. IMPRESSION / PLAN: 1. AV block/dual-chamber pacemaker in situ: His device is functioning appropriately. Complete pacemaker interrogation was performed today showing excellent intracardiac electrograms and pacing thresholds. Both atrial and ventricular auto capture functions were able to be activated to preserve battery life. 2. Abnormal EKG: Has remained free of anginal chest discomfort with no serial repolarization changes. 3. Essential hypertension: No symptoms or signs of congestion and current blood pressure is adequately controlled. 4. Gastroesophageal reflux: Currently not a problem. Should continue with his ranitidine 300 mg at bedtime. 5. Hypercalcemia: We are cautiously optimistic that his recently documented hypercalcemia will improve off Rolaids and Calcitriol therapies. 6. Renal mass: He is scheduled for minilaparotomy for ablation of his renal mass February 09, 2019. At this point, we do not anticipate he will have any difficulties. His current medications will resume: Terazosin 5 mg daily, amlodipine 5 mg daily, aspirin 81 mg daily, levothyroxine 50 mcg daily, omeprazole 20 mg daily (exchange for ranitidine in light of the recent concern regarding impurities of this generic compound), Proscar 5 mg daily, tolterodine tartrate 4 mg daily, betamethasone valerate 0.1% ointment applied to affected areas twice a day, and [place] for his psoriasis along with Systane complete 0.6% 2 drops each eye four times daily for dry eye. He can now safely resume his donepezil 10 mg at bedtime and citalopram 10 mg daily. He was instructed to perform only light activities of daily living with his left arm and avoid getting his incision wet until he is seen in my office for a clinic visit and staple removal February 01, 2019 at 02:15 p.m. Should he have any abnormal erythema, swelling or discharge we have encouraged him to contact us. He should keep his incision dry and have no more than a sponge bath until his jea are removed. Other activities can be as tolerated.
--- NOTE | 2019-01-27 09:47 | ECGEPIP ---
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
--- NOTE | 2019-01-27 09:49 | ECGEPIP ---
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
== END 2019-01-25 17:30 | disposition home or self-care (01) ==
LOC: M SDC 13:47 → M PCU 18:10
PROVIDERS: ADMIT Internal Medicine Cardiovascular Disease; ATTEND Internal Medicine Cardiovascular Disease
DX: I44.2 Atrioventricular block, complete (principal); R29.6 Repeated falls; I10 Essential (primary) hypertension; E03.9 Hypothyroidism, unspecified; K21.9 Gastro-esophageal reflux disease without esophagitis; N40.0 Benign prostatic hyperplasia without lower urinary tract symptoms; Z87.891 Personal history of nicotine dependence; Z79.899 Other long term (current) drug therapy
CPT/HCPCS: 33208; 71045; 71046; 76000; 93005; 96374; 96376; C1785; C1898; G0378; J0690; J2250; J2405; J3010

== ENCOUNTER → 2020-06-17 | Outpatient (CLI) | payer MEDICARE, BC, OTHER ==
[~2020-06-17] MED LIST changes: -AMIODARONE HCL 360 MG/200 ML PREMIXED BAG (NEXTERONE) As Ordered ONE; +AMLO1TAB24 PO; -AMLO5TAB6 PO; -BACITRACIN PWD 50,000 UNITS VIAL As Ordered ONE; +BETA145CR TOP; -ISOVUE-300 61% 50ML VIAL (Q9967) As Ordered ONE; -LIDOCAINE 1% SDV INJ 30 ML VIAL As Ordered ONE; +OMEP10CASR PO
[2020-06-17 16:31] LABS: HEMATOCRIT 49.3 % (42.0-52.0); HEMOGLOBIN 15.5 g/dl (13.5-17.5); MEAN CORPUSCULAR HEMOGLOBIN 28.7 pg (27.0-33.0); MEAN CORPUSCULAR HGB CONC 31.4 g/dl (32.0-36.5); MEAN CORPUSCULAR VOLUME 91.1 fl (80.0-96.0); PLATELET COUNT, AUTOMATED 182 10^3/uL (150-450); RED BLOOD COUNT 5.41 10^6/uL (4.30-6.10); WHITE BLOOD COUNT 5.7 10^3/uL (4.0-10.0)
[2020-06-17 16:36] LABS: ALBUMIN 3.4 GM/DL (3.2-5.2); BILIRUBIN,TOTAL 0.7 MG/DL (0.2-1.0); CALCIUM LEVEL 10.1 MG/DL (8.8-10.2); CREATININE FOR GFR 1.47 MG/DL (0.70-1.30); GLOMERULAR FILTRATION RATE 48.4 (>35); TOTAL PROTEIN 6.7 GM/DL (6.4-8.2)
== END ==
LOC: M WUC 11:35
PROVIDERS: ATTEND Physician Assistant
DX: I10 Essential (primary) hypertension (principal)